=== PATIENT | male | born 1970 | race Caucasian/White ===

== ENCOUNTER 2017-12-04 18:33 | Emergency (ER) | payer OTHER ==
[~2017-12-04] VITALS: Ht 185.4 cm; Wt 106.8 kg
[~2017-12-04 18:33] MED LIST: OSEL75 PO; Z.0.NO CURRENT MEDS
[2017-12-04 19:20] VITALS: BP 145/92; PULSE 105; RESP 18; TEMP 98.4; O2SAT 98
--- NOTE | 2017-12-04 19:38 | PD ---
HPI Chief Complaint: Skin Problem Time Seen by Provider: 19:36 Travel History International Travel<30 days: No Contact w/Intl Traveler<30days: No Traveled to known affect area: No History of Present Illness HPI 47-year-old male complains of rash over the body. Patient was in a hot tub recently. Patient states that his has the same rash. Patient states that the rash is mildly painful. Patient denies any fever chills. Patient states that he has shingles 2 times in the past. PFSH Past Medical History Asthma: Yes Influenza Vaccination: No Past Surgical History Ear Surgery: Yes (right ear) Tonsillectomy: Yes ([facility] ONLY) Social History Alcohol Use: No Tobacco Use: No Substance Use: No Allergies-Medications (Allergen,Severity, Reaction): Coded Allergies: latex (Verified Allergy, Intermediate, Rash, 12/04/17) "DERMATITIS AT POINT OF CONTACT" Reported Meds & Prescriptions Reported Meds & Active Scripts Active No Active Prescriptions or Reported Medications Review of Systems General / Constitutional: No: Fever Eyes: No: Visual changes HENT: No: Headaches Cardiovascular: No: Chest Pain or Discomfort Respiratory: No: Shortness of Breath Gastrointestinal: No: Abdominal Pain Genitourinary: No: Dysuria Musculoskeletal: No: Pain Skin: Positive Rash Neurologic: No: Weakness Psychiatric: No: Depression Endocrine: No: Polydipsia Hematologic/Lymphatic: No: Easy Bruising Physical Exam Narrative GENERAL: Well-nourished, well-developed patient. SKIN: Patient has diffuse papular rash on the trunk and extremity. HEAD: Normocephalic. EYES: No scleral icterus. No injection or drainage. NECK: Supple, trachea midline. No JVD or lymphadenopathy. CARDIOVASCULAR: Regular rate and rhythm without murmurs, gallops, or rubs. RESPIRATORY: Breath sounds equal bilaterally. No accessory muscle use. GASTROINTESTINAL: Abdomen soft, non-tender, nondistended. MUSCULOSKELETAL: No cyanosis, or edema. BACK: Nontender without obvious deformity. No CVA tenderness. Data Data Last Documented VS Vital Signs Date Time Temp Pulse Resp B/P (MAP) Pulse Ox O2 Delivery O2 Flow Rate FiO2 12/04/17 19:20 98.4 105 18 145/92 (109) 98 MDM Medical Decision Making Medical Screen Exam Complete: Yes Emergency Medical Condition: Yes Differential Diagnosis Differential diagnosis including folliculitis, dermatitis, varicella Narrative Course 47-year-old male with rash over the body. Patient was in a hot tub recently. Diagnosis Primary Impression: Folliculitis Patient Instructions: General Instructions Additional Instructions: Cipro as directed. Follow-up with personal physician. Return if worse. Med/Other Pt SpecificInfo: Prescription(s) given Scripts Ciprofloxacin (Cipro) 500 Mg Tab 500 MG PO BID for Infection, #20 TAB 0 Refills Prov: Petar Her MD 12/04/17 Disposition: 01 DISCHARGE HOME Condition: Stable Petar Her MD Dec 04, 2017 19:38
[2017-12-04] MEDS ORDERED: CIPR-9 PO (19:50)
== END 2017-12-04 19:55 | disposition home or self-care (01) ==
LOC: PHED 18:33
DX: L73.9 Follicular disorder, unspecified (principal); J45.909 Unspecified asthma, uncomplicated
CPT/HCPCS: 99283